=== PATIENT | female | born 1950 | race Caucasian/White ===

== ENCOUNTER 2017-09-29 14:46 | Emergency (ER) | payer MEDICARE, MEDICAID ==
[~2017-09-29] VITALS: Ht 157.5 cm; Wt 65.8 kg
[~2017-09-29 14:46] MED LIST: ALBUTEROL2.5 MG/0.1 IH; BACTRIM DS TAB1 EACH PO; FLEXERIL; HYDROCODON-ACE1 EAC7 PO; HYDROCODONE; HYDROXYZINE HCL25 M1 PO; IMITREX 25 MG T25 M1 PO; KEFLEX500 MG PO; LORTABELXR PO; MECLIZINE HCL25 M1; NORCO 5-325 TA1 EACH PO; OMEPRAZOLE; PERCOCET 5-3251 EACH PO; PROTONIX40 MG PO; TOPROL XL25 MG
[2017-09-29] MEDS ORDERED: ZETIA10 MG PO (15:05)
[2017-09-29] MEDS ORDERED: LOPRESSOR50 PO (15:05)
[2017-09-29 15:45] LABS: URINE BILIRUBIN NEGATIVE (Negative); URINE BLOOD NEGATIVE (Negative); URINE CLARITY SL CLOUDY; URINE COLOR YELLOW; URINE GLUCOSE-RANDOM NEGATIVE (Negative); URINE KETONES TRACE (Negative); URINE LEUKOCYTES-REFLEX 1+ (Negative); URINE NITRITE-REFLEX NEGATIVE (Negative); URINE PROTEIN NEGATIVE (Negative); URINE SPECIFIC GRAVITY >= 1.030 (1.005-1.030); URINE UROBILINOGEN 0.2 E.U./dl (0.2-1.0)
[2017-09-29 15:51] LABS: BACTERIA-REFLEX 1-9 Few /HPF (None Seen); CASTS None Seen /LPF (None Seen); CRYSTALS None Seen /LPF (None Seen); MUCUS >6 Heavy strn/LPF (None Seen); SQUAMOUS 0-3 Few /LPF (0-3); TRANSITIONAL EPITHEL CELL 0-3 Few /LPF (None Seen); URINE RBC 0-2 Rare /HPF (0-2); URINE WBC-REFLEX 6-15 Few /HPF (0-5)
[2017-09-29 16:07] LABS: ABSOLUTE LYMPHOCYTES 1.6 thou/uL (0.8-5.3); ABSOLUTE MONOCYTES 0.4 thou/uL (0.0-1.2); ABSOLUTE NEUTROPHILS 1.6 thou/uL (1.6-8.1); BASOPHILS 1.3 %; EOSINOPHILS 0.5 %; HEMATOCRIT 41.6 % (37.0-47.0); HEMOGLOBIN 14.6 gm/dL (12.0-15.0); LYMPHOCYTES 44.4 %; MCH 29.8 pg (26.0-34.0); MCHC 35.1 g/dL (28.0-37.0); MCV 84.8 fL (80.0-100.0); MONOCYTES 11.4 %; MPV 7.6 fl. (7.2-11.1); NUCLEATED RBCS 0 /100WBC; PLATELET COUNT* 211 thou/uL (150-400); POLYS 42.4 %; RDW-CV 13.3 % (10.5-14.5); WBC 3.7 thou/uL (4.0-11.0)
[2017-09-29 16:21] LABS: CALCIUM 8.7 mg/dL (8.5-10.1); CREATININE 1.2 mg/dL (0.6-1.3); POTASSIUM 3.8 mmol/L (3.5-5.1)
[2017-09-29 16:25] LABS: ALBUMIN 3.6 g/dL (3.4-5.0); TOTAL BILIRUBIN 0.4 mg/dL (<0.1-1.0); TOTAL PROTEIN 7.5 g/dL (6.4-8.2)
[2017-09-29] MEDS ORDERED: ZOFRAN ODT4 MG DISSOLVE (16:38)
[2017-09-29] MEDS ORDERED: MACROBID 100 M100 M2 PO (16:40)
[2017-09-29] MEDS ORDERED: ZOFRAN ODT4 MG PO (16:40)
[2017-09-29 16:55] VITALS: BP 108/57
== END 2017-09-29 16:57 | disposition home or self-care (01) ==
LOC: M.ERS 14:46
PROVIDERS: Nurse Practitioner Psychiatric/Mental Health
DX: N30.00 Acute cystitis without hematuria (principal); Z85.3 Personal history of malignant neoplasm of breast; Z90.12 Acquired absence of left breast and nipple; Z88.5 Allergy status to narcotic agent; Z88.8 Allergy status to other drugs, medicaments and biological substances